=== PATIENT | male | born 1940 | race Caucasian/White ===

== ENCOUNTER 2024-09-04 13:09 | Inpatient (IN) | payer MEDICARE, OTHER ==
[~2024-09-04] VITALS: Ht 177.8 cm; Wt 75.3 kg
[2024-09-04] MEDS ORDERED: HALDOL IM (13:52)
[2024-09-04] MEDS ORDERED: DIPH25TA62 PO (13:52)
[2024-09-04] MEDS ORDERED: OLAN5TAB70 PO (13:52)
[2024-09-04] MEDS ORDERED: NA P133E RC (13:52)
[2024-09-04] MEDS ORDERED: OLAN10TA73 PO (13:52)
[2024-09-04] MEDS ORDERED: MAGN400O6 PO (13:52)
[2024-09-04] MEDS ORDERED: LORA-259 PO (13:52)
[2024-09-04] MEDS ORDERED: BISA10SU61 RC (13:52)
[2024-09-04 14:32] LABS: BASOPHILS % (AUTO) 0.5 % (0.0-2.0); EOSINOPHILS # (AUTO) 0.2 K/uL (0.0-0.7); EOSINOPHILS % (AUTO) 2.6 % (0.0-7.0); HEMATOCRIT 45.1 % (36.7-47.1); HEMOGLOBIN 15.6 g/dL (12.5-16.3); LYMPHOCYTES # (AUTO) 1.9 K/uL (0.8-4.8); LYMPHOCYTES % (AUTO) 28.9 % (20.5-51.5); MEAN CORPUSCULAR HEMOGLOBIN 31.6 uug (23.8-33.4); MEAN CORPUSCULAR HGB CONC 35 g/dL (32.5-36.3); MEAN CORPUSCULAR VOLUME 91.6 fL (73.0-96.2); MONOCYTES # (AUTO) 0.7 K/uL (0.1-1.30); MONOCYTES % (AUTO) 10.2 % (0.0-11.0); NEUTROPHILS # (AUTO) 3.9 K/uL (1.8-8.9); NEUTROPHILS % (AUTO) 57.8 % (38.5-71.5); PLATELET COUNT (AUTO) 192 K/uL (152-348); RED BLOOD CELL COUNT(AUTO) 4.93 MIL/uL (4.06-5.63); RED CELL DISTRIBUTION WIDTH 14.3 % (12.1-16.2); WHITE BLOOD COUNT (AUTO) 6.7 K/uL (3.6-10.2)
[2024-09-04 14:38] LABS: *BILIRUBIN,URIN NEGATIVE (NEGATIVE); *BLOOD, URINE NEGATIVE (NEGATIVE); *CLARITY,URINE CLEAR (CLEAR); *COLOR,URINE YELLOW (YELLOW); *KETONES,URINE NEGATIVE (NEGATIVE); *PROTEIN,URINE NEGATIVE (NEGATIVE); *UROBILINOGEN,URINE 0.2 E.U./dl (NORMAL); LEUKOCYTE ESTERASE ,URINE NEGATIVE (NEGATIVE); NITRITE, URINE NEGATIVE (NEGATIVE); PH,URINE 5.5 (5.0-8.0); UGLUCOSE NEGATIVE (NEGATIVE)
[2024-09-04 14:43] LABS: DIFFERENTIAL COMMENT 1
[2024-09-04 14:46] LABS: AMMONIA < 10 umol/L (11-32)
[2024-09-04 14:53] LABS: ALANINE AMINOTRANSFERASE 18 U/L (16-63); ALBUMIN 3.5 g/dL (3.4-5.0); ALKALINE PHOSPHATASE 85 U/L (50-136); ASPARTATE AMINOTRANSFERASE 19 U/L (15-37); BILIRUBIN,DIRECT 0.2 mg/dL (0.0-0.2); BILIRUBIN,TOTAL 0.5 mg/dL (0.2-1.0); CALCIUM 9.5 mg/dL (8.5-10.1); CARBON DIOXIDE 29 mmol/L (21-32); CHLORIDE 105 mmol/L (98-107); CREATININE 1.2 mg/dL (0.6-1.3); ETHANOL < 3 MG/DL (0-10); GLUCOSE 103 mg/dL (74-106); POTASSIUM 4.1 mmol/L (3.5-5.1); SODIUM SERUM 142 mmol/L (136-145); TOTAL PROTEIN, SERUM 7.1 g/dL (6.4-8.2); UREA NITROGEN, BLOOD 16 mg/dL (7-18)
[2024-09-04 14:54] LABS: ACETAMINOPHEN < 2.0 ug/mL (10-30)
[2024-09-04 14:58] LABS: *AMPHETAMINE, URINE NEGATIVE (NEGATIVE); *BARBITURATE, URINE NEGATIVE (NEGATIVE); *BENZODIAZEPINE, URINE NEGATIVE (NEGATIVE); *CANNABINOID, URINE NEGATIVE (NEGATIVE); *COCCAINE, URINE NEGATIVE (NEGATIVE); *OPIATE, URINE NEGATIVE (NEGATIVE); *PHENCYCLIDINE SCREEN,URINE NEGATIVE (NEGATIVE); FENTANYL, URINE NEGATIVE (NEGATIVE)
[2024-09-04 17:55] VITALS: BP 143/79; TEMP 97.7; O2SAT 97
[2024-09-04] MEDS: OLANZAPINE 10 MG VIAL IM ONE (18:30)
[2024-09-04] MEDS: BLOOD SUGAR DIAGNOSTIC 1 EACH STRIP VI ONE ×2 (18:30→22:19)
[2024-09-04 18:50] VITALS: BP 143/79; TEMP 98.2; O2SAT 98
[2024-09-04 20:00] VITALS: BP 128/56; TEMP 97.4; O2SAT 94
[2024-09-04] MEDS ORDERED: MAGNESIUM HYDROXIDE 30 ML LIQUID UDC PO PRN (22:15)
[2024-09-04] MEDS ORDERED: TEMAZEPAM 7.5 MG CAPSULE PO PRN (22:15)
[2024-09-04] MEDS ORDERED: ACETAMINOPHEN 325 MG TABLET PO PRN (22:15)
[2024-09-04] MEDS ORDERED: MAG HYDROX/AL HYDROX/SIMETH 30 ML LIQUID UDC PO PRN (22:15)
[2024-09-04] MEDS ORDERED: LORAZEPAM 0.5 MG TABLET PO PRN ×2 (22:15)
[2024-09-05 07:52] VITALS: BP_SYST 120; BP_SYST 141; BP_DIAS 48; BP_DIAS 55; TEMP 98; O2SAT 96; O2SAT 98
[2024-09-05 08:00] LABS: ALANINE AMINOTRANSFERASE 14 U/L (16-63); ALBUMIN 3.1 g/dL (3.4-5.0); ALKALINE PHOSPHATASE 76 U/L (50-136); ASPARTATE AMINOTRANSFERASE 14 U/L (15-37); BILIRUBIN,TOTAL 0.6 mg/dL (0.2-1.0); CALCIUM 8.7 mg/dL (8.5-10.1); CARBON DIOXIDE 28 mmol/L (21-32); CHLORIDE 107 mmol/L (98-107); CREATININE 1.1 mg/dL (0.6-1.3); GLUCOSE 100 mg/dL (74-106); POTASSIUM 4.3 mmol/L (3.5-5.1); SODIUM SERUM 142 mmol/L (136-145); TOTAL PROTEIN, SERUM 6.3 g/dL (6.4-8.2); UREA NITROGEN, BLOOD 19 mg/dL (7-18)
[2024-09-05] MEDS ORDERED: MINE133E RC (09:01)
[2024-09-05 15:11] VITALS: BP 123/48; TEMP 98; O2SAT 98
[2024-09-05 20:06] VITALS: BP 129/54; TEMP 98.1; O2SAT 95
[2024-09-05] MEDS: DIVALPROEX 125 MG TABLET.DR PO SCH (20:56)
[2024-09-05] MEDS: risperiDONE 0.5 MG TABLET PO SCH (20:56)
[2024-09-05] MEDS ORDERED: DIVALPROEX 250 MG TABLET.DR PO SCH (21:00)
[2024-09-05] MEDS: TEMAZEPAM 7.5 MG CAPSULE PO PRN (22:45)
[2024-09-06 08:00] VITALS: BP 151/86; TEMP 97.8; O2SAT 97
[2024-09-06] MEDS: DIVALPROEX 250 MG TABLET.DR PO SCH (12:22)
[2024-09-06 20:24] VITALS: BP 97/50; TEMP 97.9; O2SAT 95
[2024-09-07 08:09] VITALS: BP 104/54; TEMP 98; O2SAT 98
[2024-09-07 15:25] VITALS: BP 96/53; TEMP 98; O2SAT 98
[2024-09-07 20:24] VITALS: BP 100/52; TEMP 97.9; O2SAT 96
[2024-09-07] MEDS: ATORVASTATIN 40 MG TABLET PO SCH (20:35)
[2024-09-08 08:36] VITALS: BP 109/61; TEMP 98; O2SAT 99
[2024-09-08 15:27] VITALS: BP 112/69; TEMP 98; O2SAT 96
[2024-09-08 20:00] VITALS: BP 100/53; TEMP 98.1; O2SAT 95
[2024-09-09 08:09] VITALS: BP 114/57; TEMP 98; O2SAT 98
[2024-09-09 15:47] VITALS: BP 120/71; TEMP 98; O2SAT 98
[2024-09-09 20:00] VITALS: BP 95/52; TEMP 98.7; O2SAT 95
[2024-09-10 08:04] VITALS: BP 122/49; TEMP 98; O2SAT 99
[2024-09-10 15:28] VITALS: BP 115/54; TEMP 98; O2SAT 99
[2024-09-10 20:00] VITALS: BP 110/61; TEMP 98.3; O2SAT 94
[2024-09-11 17:12] VITALS: BP 94/57; TEMP 98.2; O2SAT 96
[2024-09-11] MEDS: risperiDONE 1 MG TABLET PO SCH (20:03)
[2024-09-12 07:44] VITALS: BP 108/56; TEMP 97.8; O2SAT 96
[2024-09-12 15:12] VITALS: BP 105/54; TEMP 98.6; O2SAT 77
[2024-09-12 20:00] VITALS: BP 98/58; TEMP 97.7; O2SAT 95
[2024-09-13 07:56] VITALS: BP 100/43; TEMP 98.5; O2SAT 97
[2024-09-13] MEDS: DIVALPROEX 125 MG TABLET.DR PO SCH (12:09)
[2024-09-13] MEDS ORDERED: DIVALPROEX 250 MG TABLET.DR PO SCH (13:00)
[2024-09-13 16:00] VITALS: BP 129/68; TEMP 98.2; O2SAT 96
[2024-09-13 20:00] VITALS: BP 106/58; TEMP 98.1; O2SAT 99
[2024-09-14 07:48] VITALS: BP 97/55; TEMP 98; O2SAT 94
[2024-09-14 15:52] VITALS: BP 106/63; TEMP 98.2; O2SAT 95
[2024-09-14 16:04] VITALS: BP 106/63; TEMP 98.2; O2SAT 95
[2024-09-14 20:05] VITALS: BP 110/56; TEMP 98.1; O2SAT 95
[2024-09-15 07:49] VITALS: BP 147/54; TEMP 98.4; O2SAT 97
[2024-09-15 15:26] VITALS: BP 129/53; TEMP 98.2; O2SAT 96
[2024-09-15 20:19] VITALS: BP 136/55; TEMP 98.1; O2SAT 96
[2024-09-16 09:18] VITALS: BP 121/57; TEMP 98; O2SAT 100
[2024-09-16 20:28] VITALS: BP 120/56; TEMP 98.1; O2SAT 99
[2024-09-17 07:37] VITALS: BP 105/50; TEMP 98; O2SAT 98
[2024-09-17 15:48] VITALS: BP 105/54; TEMP 98.3; O2SAT 98
[2024-09-17 20:00] VITALS: BP 117/74; TEMP 97.7; O2SAT 95
[2024-09-18 08:00] VITALS: BP 103/47; TEMP 98.3; O2SAT 95
== END 2024-09-18 13:15 | DRG 885 ==
LOC: ER 13:09 → GPS 16:32
PROVIDERS: ADMIT Psychiatry & Neurology Psychiatry; ATTEND Nurse Practitioner Acute Care
DX: F39 Unspecified mood [affective] disorder (principal); F03.92 Unspecified dementia, unspecified severity, with psychotic disturbance; E44.1 Mild protein-calorie malnutrition; F31.13 Bipolar disorder, current episode manic without psychotic features, severe; F03.918 Unspecified dementia, unspecified severity, with other behavioral disturbance; F03.93 Unspecified dementia, unspecified severity, with mood disturbance; E78.5 Hyperlipidemia, unspecified; E88.09 Other disorders of plasma-protein metabolism, not elsewhere classified; G47.00 Insomnia, unspecified; Z79.899 Other long term (current) drug therapy
CPT/HCPCS: 36415; 70450; 71045; 80164; 84484; 85025; 85730; G0480; J2358; J3490